=== PATIENT | male | born 1985 | race Hispanic/Latino ===

== ENCOUNTER 2022-05-14 19:37 | Emergency (ER) | payer BC ==
[2022-05-14 20:09] LABS: Hemoglobin 17.6 g/dL (14.0-18.0); Mean Corpuscular HGB CONC 35.2 g/dL (32.0-36.0); Mean Corpuscular Hemoglobin 34.4 pg (27.0-31.0); Mean Corpuscular Volume 97.6 fL (78.0-98.0); Mean Platelet Volume 7.8 fL (7.4-10.4); Platelet Count 201 thou/uL (130-400); RBC Distribution Width 12.2 % (11.5-14.5); Red Blood Cell (RBC) Count 5.13 mill/uL (4.70-6.10); White Blood Cell (WBC) Count 8.6 thou/uL (4.8-10.8)
[2022-05-14] MEDS ORDERED: valACYclovir 500 MG TAB PO SCH (20:15)
[2022-05-14] MEDS ORDERED: predniSONE 20 MG TAB PO SCH (20:15)
[2022-05-14 20:26] LABS: ALT (SGPT) 337 U/L (8-55); AST (SGOT) 119 U/L (5-34); Albumin 4.7 g/dL (3.5-5.0); Alkaline Phosphatase 97 U/L (40-110); Anion Gap 20 mmol/L (10-20); BUN (Urea Nitrogen) 12 mg/dL (8.9-20.6); Bilirubin, Total 0.6 mg/dL (0.2-1.2); Calc. Creatinine Clearance 0 mL/min (70-130); Calcium 9.5 mg/dL (7.8-10.44); Carbon Dioxide 20 mmol/L (22-29); Chloride 106 mmol/L (98-107); Estimated GFR 111; Globulin 3.6 g/dL (2.4-3.5); Glucose 93 mg/dL (70-105); Potassium 4.2 mmol/L (3.5-5.1); Protein, Total 8.3 g/dL (6.0-8.3); Sodium 142 mmol/L (136-145)
[2022-05-14 20:29] LABS: Band 2 % (5-11); Eosinophils 3 % (0-10); Lymphocytes 50 % (21-51); MDiff Complete? YES; Monocytes 3 % (0-10); Neutrophil 37 % (42-75); Platelet Morphology Comment Appears Adequate; RBC Morphology Normal; Reactive Lymphocytes 4 % (0-10)
[2022-05-14] MEDS ORDERED: predniSONE 20 MG TAB ONE (20:49)
== END 2022-05-14 20:57 | disposition home or self-care (01) ==
LOC: ERS 19:37
DX: G51.0 Bell's palsy (principal)
CPT/HCPCS: 36416; 70450; 80053; 85025; 85652; 86140; 93005; J7512